=== PATIENT | male | born 1940 | race Caucasian/White ===

== ENCOUNTER 2020-01-05 06:47 | Day surgery (SDC) | payer MEDICARE, OTHER ==
--- NOTE | 2020-01-04 00:05 | HP ---
HISTORY AND PHYSICAL: DATE OF PLANNED ADMISSION AND SURGERY: 01/05/20 HISTORY OF PRESENT ILLNESS: Mr. Goodrich is a 79-year-old white male who is admitted with suspicious bladder lesion, history of transitional cell carcinoma of the urinary bladder for cystoscopy and transurethral resection of bladder lesion. Please refer to the detailed history and physical of the patient's medical condition by the cardiology service dated 12/12/19. This history and physical details his medical condition, his medications, and cardiology workup. Mr. Goodrich is a 79-year-old white male whom I have been following for the last several years because of history of transitional cell carcinoma of the urinary bladder. 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 He was followed with periodic cystoscopies and he had one recurrence in July 2015. The recurrence was resected and it was again a low-grade noninvasive TCC. Because it was a recurrent tumor, he received a 6-weeks' course of intravesical BCG. He continued to be followed with periodic cystoscopies. In May 2019, cystoscopy showed a small hyperemic lesion of the anterior bladder wall. The lesion was observed, cystoscopy was repeated earlier this month and the lesion has gotten larger and looked suspicious for flat transitional cell carcinoma. His urine cytologies were negative. After obtaining cardiology clearance, the patient is admitted for cystoscopy and transurethral resection of the bladder lesion. PAST MEDICAL HISTORY: As mentioned in the cardiology note, the patient has a history of atrial fibrillation and history of pulmonary embolism and being maintained on warfarin. He has an implanted pacemaker. He has a history of coronary artery disease and had CABG in the past. He has essential hypertension. ALLERGIES: He denies any allergies to medications. PHYSICAL EXAMINATION GENERAL: He is an elderly white male who looks older than his age. VITAL SIGNS: Blood pressure 126/80, pulse of 80. LUNGS: Clear. HEART: He has a pacemaker. ABDOMEN: Soft without any masses. IMPRESSION: Past history of transitional cell carcinoma of the urinary bladder with a suspicious bladder lesion on recent cystoscopy. PLAN: Plan is for cystoscopy and transurethral resection of the bladder lesion. The cardiology consultation requested minimal discontinuation of the anticoagulation because of the history of atrial fibrillation and pulmonary embolism. The Coumadin was discontinued 2 days preoperatively. I expect the pro-time not to be down to normal, but I would still be able to perform the tumor resection. Will plan to have him off Coumadin for a total of 1 week, and if he has no hematuria, it can be resumed postoperatively. [id number]/[facility] #: [id number] [facility] INSANEBaltazar
[~2020-01-05 06:47] MED LIST: Buffered Lidocaine 1% SYRIN* 1 ML/SYRINGE INTRADERM ONE; Lactated Ringers 1000 ML Bag* 1,000 ML IV SCH
[2020-01-05] MEDS ORDERED: cefTRIAXone(*) 2 GM ADDV.VIAL IVPB ONE (06:50)
[2020-01-05] MEDS ORDERED: Midazolam* 1 MG/ML 2 ML VIAL (2 MG) ONE (07:39)
[2020-01-05] MEDS ORDERED: fentaNYL* 50 MCG/ML 2 ML VIAL (100 MCG VIAL) ONE (07:52)
[2020-01-05] MEDS ORDERED: Lidocaine 2% JELLY* 20 ML (for OR use) ONE (07:57)
[2020-01-05] MEDS ORDERED: Metoprolol Tartrate TAB* 25 MG PO ONE (08:00)
[2020-01-05] MEDS ORDERED: Propofol* 10 MG/ML 20 ML BTL ONE (08:13)
[2020-01-05] MEDS ORDERED: Ondansetron INJ* 2 MG/ML VIAL IV PRN (08:19)
[2020-01-05] MEDS ORDERED: Naloxone* 0.4 MG/ML 1 ML VIAL IV PRN (08:19)
[2020-01-05] MEDS ORDERED: oxyCODONE TAB* 5 MG TAB PO PRN (08:19)
[2020-01-05] MEDS ORDERED: fentaNYL* 50 MCG/ML 2 ML VIAL (100 MCG VIAL) IV PRN (08:19)
[2020-01-05] MEDS ORDERED: mitoMYcin PREMIX* 40 MG KIT* 40 MG/40 ML SYRINGE IRRIGATION ONE ×2 (09:00→10:00)
[2020-01-05 10:32] VITALS: BP 131/85
--- NOTE | 2020-01-06 01:56 | OP ---
DATE OF OPERATION: 01/05/20 - [facility] DATE OF : 42 SURGEON: Jc Hester MD ANESTHESIOLOGIST: Dr. Dat Remy ANESTHESIA: IV sedation with MAC. PRE-OP DIAGNOSIS: Suspicious bladder lesion, anterior bladder wall. POST-OP DIAGNOSIS: Suspicious bladder lesion, anterior bladder wall, pending pathology. OPERATIVE PROCEDURE: 1. Cystoscopy. 2. Biopsy of lesion of anterior bladder wall. 3. Extensive fulguration of lesion, anterior bladder wall. INDICATIONS FOR PROCEDURE: Mr. 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 He had another recurrence in 2014 and the recurrence was again low-grade noninvasive transitional cell carcinoma. At that time, he was treated with 6 weeks course of intravesical BCG. The patient had a recent cystoscopy, which showed a flat hyperemic lesion located in the anterior bladder wall. The lesion was surrounding a small diverticulum. No other bladder lesions were seen. The patient is admitted for the above procedure. PATHOLOGY: At cystoscopy, the penile and bulbar urethrae looked normal. Examination of the bladder showed normal ureteral orifices. There was a flat hyperemic suspicious lesion surrounding a small diverticulum measuring about 1 cm in diameter and located in the anterior bladder wall adjacent to the air bubble. The lesion was flat, hyperemic, and had the appearance of flat transitional cell carcinoma. No other suspicious bladder lesions were seen. DESCRIPTION OF PROCEDURE: With the patient in the lithotomy position and after intravenous sedation and anesthesia monitoring, he was prepped and draped for a cystoscopy. Cystoscopy was performed. The bladder was inspected and above findings were noted. The lesion in the anterior bladder wall was noted. Because of the location of the tumor in the anterior bladder wall and the presence of the diverticulum, there was a concern about perforation of the bladder wall if TUR was performed. It was decided to do cup biopsy of the lesion,and fulguration. Using the biopsy forceps, a licensing representative biopsy was obtained from the lesion and was sent for pathology. Using the Bugbee electrode, extensive fulguration was carried of the whole lesion including the inside of the diverticulum. The cauterization was performed through the mucosa and the submucosa, and included all the hyperemic lesion seen as well as the surrounding bladder mucosa. Suprapubic pressure had to be applied to allow the visualization and the access to the above lesion. At the completion of the cauterization, there was very good hemostasis. There was no gross residual lesion seen. There was no bladder wall or diverticular wall perforation. The cystoscope was then removed. A size 18-[place] Mcclain catheter was placed. The patient tolerated the procedure well and left the operating room in good condition. The plan is to give the patient 1 dose of intravesical mitomycin C in the PACU. [id number]/[facility] #: [id number] [facility]
== END 2020-01-05 10:37 | disposition home or self-care (01) ==
LOC: OR 06:47
PROVIDERS: ATTEND Urology
DX: N32.89 Other specified disorders of bladder (principal); Z85.51 Personal history of malignant neoplasm of bladder; Z95.0 Presence of cardiac pacemaker; Z86.711 Personal history of pulmonary embolism; Z79.01 Long term (current) use of anticoagulants; I48.91 Unspecified atrial fibrillation; E78.5 Hyperlipidemia, unspecified; I25.10 Atherosclerotic heart disease of native coronary artery without angina pectoris; I10 Essential (primary) hypertension; Z95.1 Presence of aortocoronary bypass graft; E66.01 Morbid (severe) obesity due to excess calories; F03.90 Unspecified dementia, unspecified severity, without behavioral disturbance, psychotic disturbance, mood disturbance, and anxiety
CPT/HCPCS: 88305; J0696; J2250; J2704; J3010